=== PATIENT | female | born 1950 | race African-American/Black ===

== ENCOUNTER 2019-12-06 08:52 | Inpatient (IN) | payer OTHER, MEDICAID ==
[~2019-12-06] VITALS: Ht 162.6 cm; Wt 64.0 kg
[~2019-12-06 08:52] MED LIST: ASA81 PO; CARV3.1246 PO; CLOP75TA2 PO; LIP40 PO; LISI-600 PO; NITSL SL; RANI-362 PO
[2019-12-06 08:55] VITALS: BP_SYST 162
[2019-12-06] MEDS ORDERED: NACL 0.9% 1,000 ML IV ONE ×2 (09:15→10:15)
[2019-12-06] MEDS ORDERED: MORPHINE 4 MG/ML INJ. SYRINGE IVP ONE ×2 (09:15→10:00)
[2019-12-06] MEDS ORDERED: ONDANSETRON HCL 4 MG/2 ML VIAL IVP ONE (09:15)
[2019-12-06 09:39] LABS: BASOPHILS % (AUTO) 0.5 % (0.0-2.0); EOSINOPHILS # (AUTO) 0.1 K/uL (0.0-0.4); EOSINOPHILS % (AUTO) 1.3 % (0.0-4.0); LYMPHOCYTES # (AUTO) 1.3 K/uL (1.0-5.5); LYMPHOCYTES % (AUTO) 19.2 % (20.5-51.5); MEAN CORPUSCULAR HEMOGLOBIN 30 pg (27-31); MEAN CORPUSCULAR HGB CONC 33 % (32-36); MEAN CORPUSCULAR VOLUME 91 fL (79.0-98.0); MONOCYTES # (AUTO) 0.2 K/uL (0.0-1.0); MONOCYTES % (AUTO) 2.7 % (1.7-9.3); NEUTROPHILS # (AUTO) 5.3 K/uL (1.8-7.7); NEUTROPHILS % (AUTO) 76.3 % (40.0-70.0); PLATELET COUNT (AUTO) 276 K/uL (130-430); RED BLOOD CELL COUNT(AUTO) 4.29 MIL/uL (4.2-6.2); RED CELL DISTRIBUTION WIDTH 13.3 % (9.0-15.0)
[2019-12-06 09:57] LABS: BILIRUBIN,URINE NEGATIVE (NEGATIVE); CLARITY/URINE CLEAR (CLEAR); COLOR,URINE YELLOW (YELLOW); GLUCOSE,URINE NEGATIVE (NEGATIVE); KETONES,URINE TRACE (NEGATIVE); LEUKOCYTE ESTERASE ,URINE TRACE (NEGATIVE); NITRITE, URINE NEGATIVE (NEGATIVE); PH,URINE 6.5 (5.0-8.0); PROTEIN URINE TRACE (NEGATIVE); UROBILINOGEN,URINE 0.2 (0.2-1.0)
[2019-12-06 09:59] LABS: CALCIUM 9.2 mg/dL (8.4-11.0); CREATININE 1.09 mg/dL (0.55-1.30); TOTAL BILIRUBIN 0.5 mg/dL (0.0-1.0)
[2019-12-06 10:00] LABS: BLOOD, URINE TRACE (NEGATIVE)
[2019-12-06 10:11] LABS: ALBUMIN 3.9 g/dL (3.4-4.8)
[2019-12-06] MEDS ORDERED: cefTRIAXone 1 GM IVPB PREMIX 50 ML IV ONE (10:15)
[2019-12-06 10:26] LABS: BACTERIA,URINE FEW /HPF (None Seen); MUCUS,URINE 1+ /LPF (None Seen)
[2019-12-06] MEDS ORDERED: FAMOTIDINE PF 20 MG/2 ML VIAL IVP ONE (11:30)
[2019-12-06] MEDS ORDERED: KETOROLAC TROMETHAMINE 30 MG VIAL IVP ONE (12:00)
[2019-12-06] MEDS ORDERED: PROCHLORPERAZINE EDISYLATE 10 MG/2 ML VIAL IVP ONE (13:15)
[2019-12-06] MEDS: D5NS 1,000 ML IV SCH (13:37)
[2019-12-06] MEDS ORDERED: POTASSIUM CHLORIDE 20 MEQ TAB.PRT.SR PO PRN (13:45)
[2019-12-06] MEDS ORDERED: ZOLPIDEM TARTRATE 5 MG TABLET PO PRN (13:45)
[2019-12-06] MEDS ORDERED: MUPIROCIN 2% TOPICAL OINTMENT 22 GM NS PRN (13:45)
[2019-12-06] MEDS ORDERED: hydrALAZINE HCL 20 MG/ML VIAL IVP PRN (13:45)
[2019-12-06] MEDS ORDERED: DOCUSATE SODIUM 100 MG CAPSULE PO PRN (13:45)
[2019-12-06] MEDS ORDERED: ACETAMINOPHEN 325 MG TABLET PO PRN (13:45)
[2019-12-06] MEDS ORDERED: MORPHINE 2 MG/ML INJ. SYRINGE IVP PRN ×2 (13:45)
[2019-12-06] MEDS ORDERED: NITROGLYCERIN 0.4 MG TAB.SUBL SL PRN (13:45)
[2019-12-06] MEDS ORDERED: LORazepam 2 MG/ML VIAL IVP PRN (13:45)
[2019-12-06] MEDS ORDERED: MAGNESIUM SULFATE 50 ML IV PRN (13:45)
[2019-12-06] MEDS ORDERED: ONDANSETRON HCL 4 MG/2 ML VIAL IVP PRN (13:45)
[2019-12-06] MEDS ORDERED: PANTOPRAZOLE SODIUM 40 MG/VIAL (PROTONIX) IVP ONE (14:15)
[2019-12-06] MEDS ORDERED: METOCLOPRAMIDE HCL 10 MG/2 ML VIAL IVP PRN (14:30)
[2019-12-06 15:00] VITALS: BP_SYST 152
[2019-12-06 16:30] VITALS: BP_SYST 152
[2019-12-06] MEDS: CARVEDILOL 3.125 MG TABLET (COREG) PO SCH (21:07)
[2019-12-07 00:13] VITALS: BP_SYST 116
[2019-12-07] MEDS: D5NS 1,000 ML IV SCH (01:15)
[2019-12-07 06:37] LABS: BASOPHILS % (AUTO) 0.3 % (0.0-2.0); EOSINOPHILS % (AUTO) 0.1 % (0.0-4.0); HEMATOCRIT 32.8 % (36-48); LYMPHOCYTES # (AUTO) 1.8 K/uL (1.0-5.5); LYMPHOCYTES % (AUTO) 23.8 % (20.5-51.5); MEAN CORPUSCULAR HEMOGLOBIN 30 pg (27-31); MEAN CORPUSCULAR HGB CONC 34 % (32-36); MEAN CORPUSCULAR VOLUME 91 fL (79.0-98.0); MONOCYTES # (AUTO) 0.7 K/uL (0.0-1.0); MONOCYTES % (AUTO) 9.7 % (1.7-9.3); NEUTROPHILS # (AUTO) 5.1 K/uL (1.8-7.7); NEUTROPHILS % (AUTO) 66.1 % (40.0-70.0); PLATELET COUNT (AUTO) 228 K/uL (130-430); RED BLOOD CELL COUNT(AUTO) 3.62 MIL/uL (4.2-6.2); RED CELL DISTRIBUTION WIDTH 13.1 % (9.0-15.0); WHITE BLOOD COUNT (AUTO) 7.7 K/uL (4.8-10.8)
[2019-12-07 06:42] LABS: CALCIUM 8.5 mg/dL (8.4-11.0); POTASSIUM 3.7 mmol/L (3.5-5.1)
[2019-12-07 06:50] LABS: BARBITURATE, URINE NEGATIVE (NEG <=200); BENZODIAZEPINE, URINE NEGATIVE (NEG <=150); CANNABINOID, URINE POSITIVE (NEG <=50); COCAINE, URINE NEGATIVE (NEG <=150); METHAMPHETAMINES SCREEN,URINE NEGATIVE (NEG <=500); OPIATE, URINE POSITIVE (NEG <=100); PHENCYCLIDINE SCREEN,URINE NEGATIVE (NEG <=25); UR TRICYCLIC ANTIDEPRESSANTS NEGATIVE (NEG <=300); URINE AMPHETAMINE NEGATIVE (NEG <=500); URINE METHADONE NEGATIVE (NEG <=200); URINE OXYCODONE SCREEN NEGATIVE (NEG <=100); URINE PROPOXYPHENE SCREEN NEGATIVE (NEG <=300)
[2019-12-07 08:31] VITALS: BP_SYST 123
[2019-12-07] MEDS ORDERED: ATORVASTATIN 20 MG TABLET PO SCH (09:00)
[2019-12-07] MEDS ORDERED: LISINOPRIL 20 MG TABLET PO SCH (09:00)
[2019-12-07] MEDS ORDERED: cefTRIAXone 1 GM VIAL IV SCH (09:00)
[2019-12-07] MEDS ORDERED: ASPIRIN 81 MG TAB.CHEW PO SCH (09:00)
[2019-12-07] MEDS ORDERED: PANTOPRAZOLE SODIUM 40 MG/VIAL (PROTONIX) IVP SCH (09:00)
[2019-12-07] MEDS ORDERED: CLOPIDOGREL BISULFATE 75 MG TABLET PO SCH (09:00)
[2019-12-07] MEDS: CARVEDILOL 3.125 MG TABLET (COREG) PO SCH (10:22)
[2019-12-07 10:30] VITALS: BP_SYST 133
[2019-12-07 12:00] VITALS: BP_SYST 133
== END 2019-12-07 11:00 | disposition home or self-care (01) | DRG 392 ==
LOC: SED 08:52 → STU 13:13
PROVIDERS: ADMIT General Practice; ATTEND General Practice
DX: K52.9 Noninfective gastroenteritis and colitis, unspecified (principal); N39.0 Urinary tract infection, site not specified; E87.2 Acidosis; E78.5 Hyperlipidemia, unspecified; I10 Essential (primary) hypertension; I25.10 Atherosclerotic heart disease of native coronary artery without angina pectoris; R82.71 Bacteriuria; K44.9 Diaphragmatic hernia without obstruction or gangrene; K57.90 Diverticulosis of intestine, part unspecified, without perforation or abscess without bleeding; Z95.0 Presence of cardiac pacemaker; Z95.5 Presence of coronary angioplasty implant and graft; Z85.3 Personal history of malignant neoplasm of breast; Z79.899 Other long term (current) drug therapy; I25.2 Old myocardial infarction; E86.0 Dehydration
CPT/HCPCS: 36415; 71045; 76700-TC; 80048; 80053; 80307; 81000-TC; 83036; 83605; 83690-TC; 83735-TC; 84484; 85025; 85610-TC; 86710; 87040-TC; 87086; 93005; 96361; 96365; 96375; 96376; 99285; C9113; G0378; J0696; J0780; J1885; J2270; J2405; J3490; J7030; J7042

== ENCOUNTER 2019-12-07 16:44 | Emergency (ER) | payer OTHER, MEDICAID ==
[~2019-12-07] VITALS: Ht 162.6 cm; Wt 64.0 kg
[2019-12-07 16:45] VITALS: BP_SYST 159
--- NOTE | 2019-12-07 16:45 | NUR ---
BROUGHT IN BY [facility], PLACED IN BED #2 AND TRIAGED. REPORT GIVEN TO
--- NOTE | 2019-12-07 16:50 | NUR ---
Patient is awake, alert, and oriented x4. Patient was just discharged 4 hours ago from the hospital for abdominal pain. Patient has returned due to abdominal pain 10/10, nausea, and vomiting.
--- NOTE | 2019-12-07 16:53 | NUR ---
ER Dr. Ramirez at bedside examining patient.
[2019-12-07] MEDS ORDERED: NACL 0.9% 1,000 ML IV ONE (16:56)
[2019-12-07] MEDS ORDERED: MORPHINE 4 MG/ML INJ. SYRINGE IVP ONE ×2 (17:00→18:15)
[2019-12-07] MEDS ORDERED: ONDANSETRON HCL 4 MG/2 ML VIAL IVP ONE (17:00)
[2019-12-07 17:39] LABS: BASOPHILS # (AUTO) 0.1 K/uL (0.0-0.2); BASOPHILS % (AUTO) 0.7 % (0.0-2.0); EOSINOPHILS % (AUTO) 0.2 % (0.0-4.0); HEMOGLOBIN 12.1 g/dL (12.0-16.0); LYMPHOCYTES # (AUTO) 1.4 K/uL (1.0-5.5); LYMPHOCYTES % (AUTO) 18.8 % (20.5-51.5); MEAN CORPUSCULAR HEMOGLOBIN 30 pg (27-31); MEAN CORPUSCULAR HGB CONC 34 % (32-36); MEAN CORPUSCULAR VOLUME 90 fL (79.0-98.0); MONOCYTES # (AUTO) 0.4 K/uL (0.0-1.0); MONOCYTES % (AUTO) 5.5 % (1.7-9.3); NEUTROPHILS # (AUTO) 5.6 K/uL (1.8-7.7); NEUTROPHILS % (AUTO) 74.8 % (40.0-70.0); PLATELET COUNT (AUTO) 267 K/uL (130-430); RED BLOOD CELL COUNT(AUTO) 3.99 MIL/uL (4.2-6.2); RED CELL DISTRIBUTION WIDTH 13.1 % (9.0-15.0); WHITE BLOOD COUNT (AUTO) 7.5 K/uL (4.8-10.8)
[2019-12-07 17:41] LABS: BILIRUBIN,URINE NEGATIVE (NEGATIVE); BLOOD, URINE 2+ (NEGATIVE); COLOR,URINE YELLOW (YELLOW); GLUCOSE,URINE NEGATIVE (NEGATIVE); KETONES,URINE 1+ (NEGATIVE); NITRITE, URINE NEGATIVE (NEGATIVE); PROTEIN URINE NEGATIVE (NEGATIVE); UROBILINOGEN,URINE 0.2 (0.2-1.0)
[2019-12-07 17:47] LABS: CLARITY/URINE HAZY (CLEAR); LEUKOCYTE ESTERASE ,URINE TRACE (NEGATIVE)
[2019-12-07 17:48] LABS: RBC,URINE 0-3 /HPF (0-3)
[2019-12-07 17:49] LABS: BACTERIA,URINE FEW /HPF (None Seen); MUCUS,URINE None Seen /LPF (None Seen)
[2019-12-07 17:49] LABS: CALCIUM 8.9 mg/dL (8.4-11.0); CREATININE 0.98 mg/dL (0.55-1.30); POTASSIUM 3.7 mmol/L (3.5-5.1)
[2019-12-07 17:54] LABS: TOTAL BILIRUBIN 0.6 mg/dL (0.0-1.0)
--- NOTE | 2019-12-07 18:12 | NUR ---
SPOKE WITH COUSIN OF PT AND ENCOURAGED PT TO TURN HER PHONE ON, PT STATES SHE DOES NOT WANT TO TALK TO ANYONE AT THIS TIME.
--- NOTE | 2019-12-07 18:19 | NUR ---
Vital signs reported to Dr. Roger.
[2019-12-07] MEDS ORDERED: MORPHINE 4 MG/ML INJ. SYRINGE ONE (18:27)
--- NOTE | 2019-12-07 18:31 | NUR ---
Medication reconciliation completed with information provided by patient. Any prior medication reconciliation on file was reviewed and corrected.
[2019-12-07 18:32] LABS: CKMB RELATIVE INDEX 1.3 (0.0-2.9); CREATINE KINASE MB 3.4 ng/mL (0-3.6)
--- NOTE | 2019-12-07 19:15 | NUR ---
Report given from MAGALY Navarro. Pt resting in bed. VSS. Will continue to monitor.
[2019-12-07 20:10] VITALS: BP_SYST 144
--- NOTE | 2019-12-07 20:10 | NUR ---
Patient does not wish to proceed with medical care recommended by Dr. Dubois. Patient given information related to possible complications, up to and including , which could occur as a result of leaving hospital at this time. Patient verbalizes understanding of risks involved leaving against medical advice. Patient has signed AMA form.
== END 2019-12-07 20:10 | disposition left against medical advice (07) ==
LOC: SED 16:44
DX: K85.90 Acute pancreatitis without necrosis or infection, unspecified (principal); R10.10 Upper abdominal pain, unspecified; R11.2 Nausea with vomiting, unspecified; R06.02 Shortness of breath; I10 Essential (primary) hypertension; E78.00 Pure hypercholesterolemia, unspecified; Z76.5 Malingerer [conscious simulation]; Z86.73 Personal history of transient ischemic attack (TIA), and cerebral infarction without residual deficits; Z95.0 Presence of cardiac pacemaker; Z79.82 Long term (current) use of aspirin; Z79.899 Other long term (current) drug therapy
CPT/HCPCS: 36415; 71045; 80053; 81000; 82150; 82550; 82553; 83605; 83690; 85025; 85730; 87040; 93005; 96361; 96374; 96375; 96376; 99284; J2270; J2405; J7030; 99285